=== PATIENT | female | born 1995 | race Caucasian/White ===

== ENCOUNTER 2021-08-02 11:30 | Emergency (ER) | payer OTHER ==
[2021-08-02] MEDS ORDERED: CORTISPORIN-TC10 M1 EARLF (12:32)
== END 2021-08-02 12:43 | disposition home or self-care (01) ==
LOC: ER1 11:30
DX: H60.92 Unspecified otitis externa, left ear (principal); I10 Essential (primary) hypertension; Z79.899 Other long term (current) drug therapy; F17.210 Nicotine dependence, cigarettes, uncomplicated
CPT/HCPCS: 99282